=== PATIENT | male | born 1970 | race African-American/Black ===

== ENCOUNTER 2016-03-26 11:12 | Emergency (ER) | payer OTHER ==
[~2016-03-26] VITALS: Ht 177.8 cm; Wt 133.8 kg
[~2016-03-26 11:12] MED LIST: DIOVAN160 MG PO; LANTUS 3 M100 UNITS1 SC; METFORMIN; NOVOLOG 10100 UNITS/ SC
[2016-03-26 11:59] LABS: HEMATOCRIT 37.9 % (38.0-50.0); MCH 30.5 PG (29.0-34.0); MCHC 35.4 G/DL (30.0-36.0); MCV 86.1 FL (86-99); MEAN PLAT.VOLUME 9.6 uM^3 (9.0-12.4); PLATELET COUNT 300 K/uL (156-360); RBC DIS.WIDTH-CV 14.5 % (11.8-14.6); RBC DIS.WIDTH-SD 44.3 % (39-53); WHITE BLOOD COUNT 8.4 K/uL (4.1-10.2)
[2016-03-26 12:15] LABS: CHLORIDE 101 mEq/L (99-109); POTASSIUM 4.4 mEq/L (3.7-5.4); SODIUM 133 mEq/L (136-147)
[2016-03-26 12:17] LABS: GLUCOSE 309 mg/dL (70-99)
[2016-03-26 12:18] LABS: ANION GAP 9 MEQ/L (2-14); TROP-I INTERPRETATION NEGATIVE; TROPONIN-I < 0.01 ng/mL (0.0-0.30)
[2016-03-26 12:21] LABS: GFR ESTIMATE (CALCULATED) > 59 mL/min/
[2016-03-26 12:22] LABS: UREA NITROGEN (BUN) 12 mg/dL (9-23)
[2016-03-26 15:09] VITALS: BP 125/81
== END 2016-03-26 16:24 | disposition left against medical advice (07) ==
LOC: EME 11:12
DX: R05 Cough (principal); Z53.21 Procedure and treatment not carried out due to patient leaving prior to being seen by health care provider
CPT/HCPCS: 71020; 80048; 84484; 85027; 93005